=== PATIENT | male | born 2000 | race Caucasian/White ===

== ENCOUNTER 2018-04-19 10:30 | Emergency (ER) | payer BC, OTHER ==
[2018-04-19 11:18] LABS: Urine Bacteria <20 /HPF (NONE SEEN); Urine Culture Reflex Order NOT NEEDED; Urine RBC <5 /HPF (NONE SEEN)
--- NOTE | 2018-04-19 11:29 | RAD REPORT ---
EXAM DESCRIPTION: US - Scrotum Testicles - 04/19/2018 11:09 am CLINICAL HISTORY: PAIN COMPARISON: None FINDINGS: The right testicle 3.9 x 2.3 x 2.1 cm. No intratesticular masses or evidence of testicular torsion. The left testicle 3.7 x 2.5 x 1.7 cm. No intratesticular masses or evidence of testicular torsion. Both epididymides are normal in size and appearance. No pathologic fluid collections. IMPRESSION: Unremarkable study.
--- NOTE | 2018-04-19 12:09 | RAD REPORT ---
EXAM DESCRIPTION: CT - Stone Protocol - 04/19/2018 11:55 am CLINICAL HISTORY: Flank pain. FLANK PAIN COMPARISON: No comparisons TECHNIQUE: Axial images were obtained without oral or IV contrast. Lack of contrast limits solid org an and vascular assessment. The [id number] spans the entirety of the system partially obscuring uppermost abdomen and lung bases. Coronal reformatted images were obtained and reviewed. All CT scans are performed using dose optimization technique as appropriate and may include automated exposure control or mA/KV adjustment according to patient size. FINDINGS: The lower lung crain are clear. Imaged portions of the liver and spleen show no suspicious findings on non-contrast imaging. The panc reas and adrenal glands are normal. No pathologic lymphadenopathy in the abdomen or pelvis. No urinary tract stones or obstructive uropathy. No bowel obstruction, free air, free fluid or abscess. Normal appendix noted.Moderate fecal retention in the colon. No significant bony abnormality. IMPRESSION: No urinary tract stones or obstructive uropathy.
--- NOTE | 2018-04-19 12:17 | ER ---
Nurse's Notes [facility] Name: Marty Madden Age: 17 yrs Sex: Male : 2000 Arrival Date: 04/19/2018 Time: 10:33 Bed 14 Private MD: Kwasi Martinez Diagnosis: acute scrotal pain Presentation: 04/19 10:36 Presenting complaint: Patient states: right testicular pain x [address] tripp Scott's office because they do not take his insurance. Transition of care: patient was not received from another setting of care. Onset of symptoms was March 2018. Care prior to arrival: None. 10:36 Method Of Arrival: Ambulatory sv 10:36 Acuity: ERICA 4 sv 10:41 Risk Assessment: Do you want to hurt yourself or someone else? Patient reports no tw2 desire to harm self or others. Initial Sepsis Screen: Does the patient meet any 2 criteria? No. Patient's initial sepsis screen is negative. Does the patient have a suspected source of infection? No. Patient's initial sepsis screen is negative. Historical: - Allergies: 10:37 No Known Allergies; sv - Home Meds: 10:37 vivanz [Active]; sv - PMHx: 10:37 ADD/ADHD; sv - PSHx: 10:37 None; sv - Immunization history:: Adult Immunizations up to date. - Social history:: Smoking status: Patient/guardian denies using tobacco. - Ebola Screening: : No symptoms or risks identified at this time. Screenin:40 Abuse screen: Denies threats or abuse. Nutritional screening: No deficits noted. tw2 Tuberculosis screening: No symptoms or risk factors identified. Fall Risk None identified. Assessment: 10:41 General: Appears in no apparent distress. Behavior is calm, cooperative, appropriate tw2 for age. Pain: Complains of pain in "testicle". Neuro: Level of Consciousness is awake, alert, obeys commands, Oriented to person, place, time, situation. Cardiovascular: Denies chest pain, shortness of breath, Capillary refill < 3 seconds Patient's skin is warm and dry. Respiratory: Airway is patent Respiratory effort is even, unlabored, Respiratory pattern is regular, symmetrical. GI: No signs and/or symptoms were reported involving the gastrointestinal system. : No signs and/or symptoms were reported regarding the genitourinary system. EENT: No signs and/or symptoms were reported regarding the EENT system. Derm: No signs and/or symptoms reported regarding the dermatologic system. Musculoskeletal: Range of motion: intact in all extremities. 10:42 Reassessment: Dr. Miller at bedside at this time. tw2 11:34 Reassessment: Patient appears in no apparent distress at this time. No changes from tw2 previously documented assessment. Patient and/or family updated on plan of care and expected duration. Pain level reassessed. Patient is alert, oriented x 3, equal unlabored respirations, skin warm/dry/pink. 12:36 Reassessment: Patient appears in no apparent distress at this time. No changes from tw2 previously documented assessment. Patient and/or family updated on plan of care and expected duration. Pain level reassessed. Patient is alert, oriented x 3, equal unlabored respirations, skin warm/dry/pink. Vital Signs: 10:38 BP 137 / 81; Pulse 96; Resp 18; Temp 98.7(TE); Pulse Ox 99% ; Weight 6.8 kg; Height 5 sv ft. 8 in. (172.72 cm); 11:34 BP 140 / 87; Pulse 84; Resp 17; Pulse Ox 100% on R/A; tw2 12:36 BP 133 / 82; Pulse 67; Resp 17; Pulse Ox 99% on R/A; tw2 10:38 Body Mass Index 2.28 (6.80 kg, 172.72 cm) sv ED Course: 10:33 Patient arrived in ED. mr 10:34 Kwasi Martinez MD is Private Physician. mr 10:37 Triage completed. sv 10:39 Arm band placed on right wrist. sv 10:40 Paulette Pardo, POLI is Primary Nurse. tw2 10:41 Allen Miller MD is Attending Physician. gs 10:41 Bed in low position. Adult w/ patient. Pulse ox on. NIBP on. tw2 10:58 Urine Microscopic Only Sent. tw2 11:09 US Scrotum Testicles In Process Unspecified. EDMS 11:26 Urine Dipstick--Ancillary (enter results) Sent. mh5 11:26 Urine collected: clean catch specimen, clear. mh5 11:[address] jj2 11:53 CT completed. Patient tolerated procedure well. Patient moved back from CT. vm2 11:55 CT Stone Protocol In Process Unspecified. EDMS 12:15 Renan Scott MD is Referral Physician. gs 12:36 No provider procedures requiring assistance completed. Patient did not have IV access tw2 during this emergency room visit. Administered Medications: No medications were administered Outcome: 12:16 Discharge ordered by MD. gs 12:36 Discharged to home ambulatory, with family. tw2 12:36 Condition: stable 12:36 Discharge instructions given to patient, family, Instructed on discharge instructions, follow up and referral plans. Demonstrated understanding of instructions, follow-up care. 12:37 Patient left the ED. tw2 Signatures: Dispatcher [employer] EDPoly Mcneal RN RN sv Rivera, Maria Duran, Subhash jPaulette Barfield RN RN [facility] Susanne Bateman [facility] Jossy Yepez 2 Allen Miller MD MD Corrections: (The following items were deleted from the chart) 10:39 10:36 Presenting complaint: Patient states: right testicular pain x 1 month. sv sv 10:39 10:38 Pulse 96bpm; Resp 18bpm; Pulse Ox 99%; Temp 98.7F Temporal; 6.8 kg; Height 5 ft. sv 8 in.; BMI: 2.28; sv
--- NOTE | 2018-04-19 12:17 | EDPHYS ---
Physician Documentation [facility] Name: Marty Madden Age: 17 yrs Sex: Male : 2000 Arrival Date: 04/19/2018 Time: 10:33 Bed 14 Private MD: Kwasi Martinez ED Physician Angela Allen HPI: 04/19 11:39 This 17 yrs old Male presents to ER via Ambulatory with complaints of gs Testicular Pain. 11:39 The patient presents with scrotal pain, of the right side, without swelling, without gs erythema. Onset: The symptoms/episode began/occurred 3 day(s) ago. Modifying factors: The symptoms are alleviated by nothing, the symptoms are aggravated by nothing. Associated signs and symptoms: Pertinent negatives: abdominal pain. Severity of symptoms: At their worst the symptoms were moderate, in the emergency department the symptoms have improved, markedly. 12:11 The patient has experienced similar episodes in the past, a few times. gs Historical: - Allergies: 10:37 No Known Allergies; sv - Home Meds: 10:37 vivanz [Active]; sv - PMHx: 10:37 ADD/ADHD; sv - PSHx: 10:37 None; sv - Immunization history:: Adult Immunizations up to date. - Social history:: Smoking status: Patient/guardian denies using tobacco. - Ebola Screening: : No symptoms or risks identified at this time. ROS: 12:11 Back: Positive for pain at rest, of the lumbar area. gs 12:11 All other systems are negative. Exam: 12:11 Head/Face: Normocephalic, atraumatic. Eyes: Pupils equal round and reactive to light, gs extra-ocular motions intact. Lids and lashes normal. Conjunctiva and sclera are non-icteric and not injected. Cornea within normal limits. Periorbital areas with no swelling, redness, or edema. ENT: Nares patent. No nasal discharge, no septal abnormalities noted. Tympanic membranes are normal and external auditory canals are clear. Oropharynx with no redness, swelling, or masses, exudates, or evidence of obstruction, uvula midline. Mucous membranes moist. Neck: Trachea midline, no thyromegaly or masses palpated, and no cervical lymphadenopathy. Supple, full range of motion without nuchal rigidity, or vertebral point tenderness. No Meningismus. Chest/axilla: Normal chest wall appearance and motion. Nontender with no deformity. No lesions are appreciated. Cardiovascular: Regular rate and rhythm with a normal S1 and S2. No gallops, murmurs, or rubs. Normal PMI, no JVD. No pulse deficits. Respiratory: Lungs have equal breath sounds bilaterally, clear to auscultation and percussion. No rales, rhonchi or wheezes noted. No increased work of breathing, no retractions or nasal flaring. Abdomen/GI: Soft, non-tender, with normal bowel sounds. No distension or tympany. No guarding or rebound. No evidence of tenderness throughout. Back: No spinal tenderness. No costovertebral tenderness. Full range of motion. Skin: Warm, dry with normal turgor. Normal color with no rashes, no lesions, and no evidence of cellulitis. MS/ Extremity: Pulses equal, no cyanosis. Neurovascular intact. Full, normal range of motion. Neuro: Awake and alert, GCS 15, oriented to person, place, time, and situation. Cranial nerves II-XII grossly intact. Motor strength 5/5 in all extremities. Sensory grossly intact. Cerebellar exam normal. Normal gait. 12:11 Constitutional: The patient appears alert, awake. 12:11 : Male external genitalia: tenderness, that is mild, r testicle. Vital Signs: 10:38 BP 137 / 81; Pulse 96; Resp 18; Temp 98.7(TE); Pulse Ox 99% ; Weight 6.8 kg; Height 5 sv ft. 8 in. (172.72 cm); 11:34 BP 140 / 87; Pulse 84; Resp 17; Pulse Ox 100% on R/A; tw2 12:36 BP 133 / 82; Pulse 67; Resp 17; Pulse Ox 99% on R/A; tw2 10:38 Body Mass Index 2.28 (6.80 kg, 172.72 cm) sv MDM: 10:48 Patient medically screened. 12:11 Differential diagnosis: nonspecific abdominal pain, epididymitis, torsion of testicle. Data reviewed: vital signs, nurses notes. 04/19 10:49 Order name: Urine Microscopic Only; Complete Time: 11:33 04/19 11:00 Order name: Urine Dipstick--Ancillary (enter results) eb 04/19 10:49 Order name: Urine Dipstick-Ancillary (obtain specimen); Complete Time: 10:58 04/19 10:49 Order name: US Scrotum Testicles; Complete Time: 11:33 04/19 11:40 Order name: CT Stone Protocol; Complete Time: 12:11 Administered Medications: No medications were administered Disposition: 04/19/18 12:16 Discharged to Home. Impression: acute scrotal pain. - Condition is Stable. - Discharge Instructions: Testicular Self-Exam, [id number]. - Work release form, Medication Reconciliation Form, Thank You Letter, Antibiotic Education, Prescription Opioid Use form. - Follow up: Renan Scott MD; When: 2 - 3 days; Reason: Re-evaluation by your physician. Signatures: Dispatcher [employer] Poly Danielle, POLI RN Paulette Pardo RN RN tw2 Allen Miller MD MD Corrections: (The following items were deleted from the chart) 12:37 12:16 04/19/2018 12:16 Discharged to Home. Impression: acute scrotal pain. Condition is tw2 Stable. Forms are Medication Reconciliation Form, Thank You Letter, Antibiotic Education, Prescription Opioid Use. Follow up: Renan Scott; When: 2 - 3 days; Reason: Re-evaluation by your physician.
[2018-04-19 14:59] LABS: Urine Blood NEGATIVE (NEG); Urine Glucose NEGATIVE (NEG); Urine Protein NEGATIVE (NEG); Urine pH 6.5 (5.0-7.0)
== END 2018-04-19 12:37 | disposition home or self-care (01) ==
LOC: ER 10:30
DX: N50.82 Scrotal pain (principal)
CPT/HCPCS: 74176; 76377; 76870; 81003; 81015; 99284

== ENCOUNTER 2021-01-13 15:34 | Emergency (ER) | payer OTHER, SELFPAY ==
--- NOTE | 2021-01-13 16:37 | ER ---
Nurse's Notes [facility] Name: Marty Madden Age: 20 yrs Sex: Male : 2000 Arrival Date: 01/13/2021 Time: 15:35 Bed Waiting Private MD: Diagnosis: ED Course: 01/13 15:35 Patient arrived in ED. as 16:36 Patient's name was called from ER lobby. No response. Unable to locate patient. Will ca1 disposition as left without being seen by a provider. Administered Medications: No medications were administered Outcome: 16:36 Patient left the ED. ca1 Signatures: Winter Bateman Cheryl RN RN ca1
== END 2021-01-13 16:36 | disposition left against medical advice (07) ==
LOC: ER 15:34
DX: R69 Illness, unspecified (principal); Z53.21 Procedure and treatment not carried out due to patient leaving prior to being seen by health care provider

== ENCOUNTER 2021-01-14 11:23 | Emergency (ER) | payer SELFPAY ==
--- NOTE | 2021-01-14 13:17 | ER ---
Nurse's Notes [facility] Name: Marty Madden Age: 20 yrs Sex: Male : 2000 Arrival Date: 01/14/2021 Time: 11:23 Bed 23 Private MD: Diagnosis: Pain in right hand Presentation: 01/14 11:57 Chief complaint: Patient states: slipped while walking upstairs, right hand punched em concrete step, right hand swelling noted. Coronavirus screen: Client denies travel out of the [place] in the last 14 days. Ebola Screen: Patient negative for fever greater than or equal to 101.5 degrees Fahrenheit, and additional compatible Ebola Virus Disease symptoms Patient denies exposure to infectious person. Patient denies travel to an Ebola-affected area in the 21 days before illness onset. No symptoms or risks identified at this time. Initial Sepsis Screen: Does the patient meet any 2 criteria? No. Patient's initial sepsis screen is negative. Does the patient have a suspected source of infection? No. Patient's initial sepsis screen is negative. Risk Assessment: Do you want to hurt yourself or someone else? Patient reports no desire to harm self or others. Onset of symptoms was January 14, 2021. 11:57 Method Of Arrival: Ambulatory em 11:57 Acuity: ERICA 4 em Historical: - Allergies: 11:59 No Known Allergies; em - PMHx: 11:59 ADD/ADHD; em - PSHx: 11:59 None; em - Immunization history:: Last tetanus immunization: up to date. - Social history:: Smoking status: Patient denies any tobacco usage or history of. Screenin:09 Abuse screen: Denies threats or abuse. Denies injuries from another. Nutritional zb screening: No deficits noted. Tuberculosis screening: No symptoms or risk factors identified. Fall Risk None identified. Assessment: 12:07 General: Appears in no apparent distress. uncomfortable, Behavior is calm, cooperative, zb appropriate for age. Pain: Complains of pain in right hand Pain radiates to right arm Pain currently is 1 out of 10 on a pain scale. at worst was 10 out of 10 on a pain scale. Quality of pain is described as aching, sharp, throbbing. Neuro: Level of Consciousness is awake, alert, obeys commands, Oriented to person, place, time, situation. Cardiovascular: Patient's skin is warm and dry. Respiratory: Airway is patent Respiratory effort is even, unlabored, Respiratory pattern is regular, symmetrical. Derm: Skin is intact, is healthy with good turgor, Skin is normal, Skin temperature is warm Bruising that is on right hand light green. Musculoskeletal: Swelling present in dorsum of right hand. 12:09 Reassessment: ECP at bedside. zb 12:15 Reassessment: xray at bedside. zb 13:30 Reassessment: Patient appears in no apparent distress at this time. Patient and/or zb family updated on plan of care and expected duration. Pain level reassessed. Patient is alert/active/playful, equal unlabored respirations, skin warm/dry/pink. patient ambulated out with family. Vital Signs: 11:57 BP 136 / 84; Pulse 63; Resp 18; Temp 97.8; Pulse Ox 100% on R/A; Weight 70.31 kg; em Height 5 ft. 7 in. (170.18 cm); Pain 1/10; 11:57 Body Mass Index 24.28 (70.31 kg, 170.18 cm) em ED Course: 11:23 Patient arrived in ED. ds1 11:58 Triage completed. em 11:59 Arm band placed on. em 12:02 Yanira Torre, POLI is Primary Nurse. zb 12:07 Naya Rodrigues FNP-C is PHCP. kb 12:07 Jun Richardson MD is Attending Physician. kb 12:09 Patient has correct armband on for positive identification. Bed in low position. Call zb light in reach. Side rails up X 1. Adult w/ patient. Door closed. Noise minimized. 12:42 Hand Right 3 View XRAY In Process Unspecified. EDMS 13:30 Patient did not have IV access during this emergency room visit. zb 13:33 No provider procedures requiring assistance completed. zb Administered Medications: No medications were administered Outcome: 13:16 Discharge ordered by . kb 13:30 Patient left the ED. kb 13:30 Discharged to home ambulatory. zb 13:30 Condition: stable 13:30 Discharge instructions given to patient, family, Instructed on discharge instructions, follow up and referral plans. Demonstrated understanding of instructions, follow-up care. Signatures: Dispatcher [employer] Naya Mata, STOREROOM CLERK-C STOREROOM CLERK-Milind Vinson RN Nori Garcia ds1 Yanira Torre RN RN zb Corrections: (The following items were deleted from the chart) 20:07 13:00 Reassessment: Patient appears in no apparent distress at this time. Patient zb and/or family updated on plan of care and expected duration. Pain level reassessed. Patient is alert/active/playful, equal unlabored respirations, skin warm/dry/pink. patient ambulated out with family zb
--- NOTE | 2021-01-14 13:17 | EDPHYS ---
Physician Documentation [facility] Name: Marty Madden Age: 20 yrs Sex: Male : 2000 Arrival Date: 01/14/2021 Time: 11:23 Bed 23 Private MD: ED Physician Jun Richardson HPI: 01/14 13:22 This 20 yrs old Male presents to ER via Ambulatory with complaints of Fall kb Injury, Hand Injury. 13:22 The patient or guardian reports an abrasion, injury, pain, swelling, tenderness. The kb complaints affect the dorsum of right hand. Context: The problem was sustained at home, resulted from a fall, going up stairs. Onset: The symptoms/episode began/occurred 4 day(s) ago. Modifying factors: The symptoms are alleviated by nothing, the symptoms are aggravated by nothing. Associated signs and symptoms: The patient has no apparent associated signs or symptoms. Severity of symptoms: At their worst the symptoms were moderate, in the emergency department the symptoms have improved. The patient has not experienced similar symptoms in the past. The patient has not recently seen a physician. Pt reports he fell onto right hand on Thursday. States it was very swollen over the weekend, but it is looking better now. Came today because he went to work and they told him he needed to get it checked out before he could come in. Historical: - Allergies: 11:59 No Known Allergies; em - PMHx: 11:59 ADD/ADHD; em - PSHx: 11:59 None; em - Immunization history:: Last tetanus immunization: up to date. - Social history:: Smoking status: Patient denies any tobacco usage or history of. ROS: 13:19 Constitutional: Negative for fever, chills, and weight loss, Neuro: Negative for kb headache, weakness, numbness, tingling, and seizure. 13:19 MS/extremity: Positive for injury or acute deformity, abrasion, pain, swelling, tenderness, of the dorsum of right hand. Exam: 13:21 Constitutional: This is a well developed, well nourished patient who is awake, alert, kb and in no acute distress. Head/Face: Normocephalic, atraumatic. Respiratory: Respirations even and unlabored. No increased work of breathing, no retractions or nasal flaring. Neuro: Awake and alert, GCS 15, oriented to person, place, time, and situation. Moves all extremities. Normal gait. 13:21 Musculoskeletal/extremity: Extremities: grossly normal except: noted in the dorsum of right hand: pain, swelling, tenderness, ROM: intact in all extremities, Circulation is intact in all extremities. Sensation intact. 13:21 Skin: injury, abrasion(s), very small abrasion noted, of the dorsum of right hand. Vital Signs: 11:57 BP 136 / 84; Pulse 63; Resp 18; Temp 97.8; Pulse Ox 100% on R/A; Weight 70.31 kg; em Height 5 ft. 7 in. (170.18 cm); Pain 1/10; 11:57 Body Mass Index 24.28 (70.31 kg, 170.18 cm) em MDM: 12:07 Patient medically screened. kb 13:21 Data reviewed: vital signs, nurses notes. Data interpreted: Pulse oximetry: on room air kb is 100 %. Interpretation: normal. Counseling: I had a detailed discussion with the patient and/or guardian regarding: the historical points, exam findings, and any diagnostic results supporting the discharge/admit diagnosis, radiology results, the need for outpatient follow up, a family practitioner, to return to the emergency department if symptoms worsen or persist or if there are any questions or concerns that arise at home. 01/14 12:03 Order name: Hand Right 3 View XRAY; Complete Time: 13:18 em Administered Medications: No medications were administered Disposition: 01/14/21 13:16 Discharged to Home. Impression: Pain in right hand. - Condition is Stable. - Discharge Instructions: Musculoskeletal Pain, Hand Contusion, [id number]. - Work release form, Medication Reconciliation Form, Thank You Letter, Antibiotic Education, Prescription Opioid Use form. - Follow up: Emergency Department; When: As needed; Reason: Worsening of condition. Follow up: Private Physician; When: 2 - 3 days; Reason: Recheck today's complaints, Continuance of care, Re-evaluation by your physician. Addendum: 01/17/2021 06:14 Co-signature as Attending Physician, Jun veliz a2 Signatures: Dispatcher [employer] Naya Mata, TAMMY-C TAMMY-Milind Vinson RN Jun Bennett MD MD ma2 Corrections: (The following items were deleted from the chart) 01/14 13:22 13:21 Constitutional: This is a well developed, well nourished patient who is awake, kb alert, and in no acute distress. Head/Face: Normocephalic, atraumatic. Neuro: Awake and alert, GCS 15, oriented to person, place, time, and situation. Moves all extremities. Normal gait. kb 13:30 13:16 01/14/2021 13:16 Discharged to Home. Impression: Pain in right hand. Condition is kb Stable. Forms are Medication Reconciliation Form, Thank You Letter, Antibiotic Education, Prescription Opioid Use. Follow up: Emergency Department; When: As needed; Reason: Worsening of condition. Follow up: Private Physician; When: 2 - 3 days; Reason: Recheck today's complaints, Continuance of care, Re-evaluation by your physician. kb
--- NOTE | 2021-01-14 13:17 | RAD REPORT ---
EXAM DESCRIPTION: RAD - Hand Right 3 View - 01/14/2021 12:42 pm CLINICAL HISTORY: PAIN, fall, pain primarily fourth and fifth metacarpal region COMPARISON: No comparisons FINDINGS: No fracture is identified. There is no dislocation or periosteal reaction noted. No forei gn body or significant soft tissue abnormality. IMPRESSION: Negative right hand examination.
[2021-01-14 13:38] VITALS: BP 136/84; TEMP 97.8; O2SAT 100
== END 2021-01-14 13:30 | disposition home or self-care (01) ==
LOC: ER 11:23
DX: S60.511A Abrasion of right hand, initial encounter (principal); W19.XXXA Unspecified fall, initial encounter; Y93.01 Activity, walking, marching and hiking; Y92.009 Unspecified place in unspecified non-institutional (private) residence as the place of occurrence of the external cause
CPT/HCPCS: 99283

== ENCOUNTER 2022-07-09 21:20 | Emergency (ER) | payer SELFPAY ==
--- OUTSIDE RECORDS SUMMARY | 2022-07-09 21:24 | XMS REPORT | Continuity of Care Document ---
:2000 Author Organization [facility] t Address [address] [place] [address] Care Team Providers Name Role Phone Lab, Adc Fam Pob I Attending Clinician Unavailable Tresa Padilla Attending Clinician TRESA MASSEY Attending Clinician Unavailable Doctor Unassigned, [place] Attending Clinician Unavailable Maggie Perez Attending Clinician MAGGIE HENDERSON Attending Clinician Unavailable Andreina Martinez MD Attending Clinician ANDREINA MARTINEZ Attending Clinician Unavailable Payers Payer Name Policy Type Policy Number Effective Date Expiration Date [facility] [id number] 2017 PPO 00:00:00 Problems Condition Condition Condition Status Onset Resolution Last Treating Co mments Source Name Details Category Date Date Treatment Clinician Date Attention Attention Disease Active 2015-09 Uni vers deficit deficit 2-23 ity of disorder disorder 00:00: [address] Allergies, Adverse Reactions, Alerts Allergy Allergy Status Severity Reaction(s) Onset Inactive Treating Comm ents Source Name Type Date Date Clinician NO KNOWN Drug Active Univers ALLERGIE Class ity of S [facility] Social History Social Habit Start Date Stop Date Quantity Comments Source History of Snuff User University of tobacco use [facility] Exposure to Not sure University of SARS-CoV-2 [facility] (event) Branch Tobacco use and 2018-04-22 2018-04-22 Former user Universi ty of exposure 00:00:00 00:00:00 [facility] Alcohol intake 2018-04-22 2018-04-22 Current University of 00:00:00 00:00:00 non-drinker of [facility] alcohol Branch (finding) Sex Assigned At [birth year] Universit y of 00:00:00 00:00:00 [facility] Smoking Status Start Date Stop Date Source Never smoker [facility] Branch Medications Ordered Filled Start Stop Current Ordering Indication Dosage Frequency Signature Comments Components Source Medication Medication Date Date Medication? Clinician (SIG) Name Name shirley 2019-09 2020- No [id number] 1000mg Take 2 Univers n 500 mg 2-11 12-12 tablets by ity of tablet 00:[place] 05[place]59 [place] 1 Medical dose. Branch shirley 2019-09 2020- No [id number] 1000mg Take 2 Univers n 500 mg 2-11 12-12 tablets by ity of tablet 00:00[place] 05[place] now for 1 Medical dose. Branch shirley 2019-09- No [id number] 1000mg Take 2 Univers n 500 mg 2-11 12-12 tablets by ity of tablet 00:00[place] 05:59 [place] now for 1 Medical dose. Branch lisdexamfet 2018- Yes [id number] 50mg Take 1 Univers amine 5-14 capsule by ity of (VYVANSE) 00:00: mouth [place] 50 mg 00 daily. Medical capsule Branch lisdexamfet 2018- Yes [id number] 50mg Take 1 Univers amine 5-14 capsule by ity of (VYVANSE) 00:00: mouth [place] 50 mg 00 daily. Medical capsule Branch lisdexamfet 2018- Yes [id number] 50mg Take 1 Univers amine 5-14 capsule by ity of (VYVANSE) 00:00: mouth [place] 50 mg 00 daily. Medical capsule Branch lisdexamfet 2018-0 Yes [id number] 50mg Take 1 Univers amine 5-14 capsule by ity of (VYVANSE) 00:00: mouth [place] 50 mg 00 daily. Medical capsule Branch lisdexamfet 2018-0 Yes [id number] 50mg Take 1 Univers amine 5-14 capsule by ity of (VYVANSE) 00:00: mouth [place] 50 mg 00 daily. Medical capsule Branch lisdexamfet 2018- Yes [id number] 50mg Take 1 Univers amine 5-14 capsule by ity of (VYVANSE) 00:00: mouth [place] 50 mg 00 daily. Medical capsule Branch lisdexamfet 2018-0 Yes [id number] 50mg Take 1 Univers amine 5-14 capsule by ity of (VYVANSE) 00:00: mouth [place] 50 mg 00 daily. Medical capsule Branch lisdexamfet Yes [id number] 50mg Take 1 Univers amine 5-14 capsule by ity of (VYVANSE) 00:00: mouth [place] 50 mg 00 daily. Medical capsule Branch lisdexamfet Yes [id number] 50mg Take 1 Univers amine 5-14 capsule by ity of (VYVANSE) 00:00: mouth [place] 50 mg 00 daily. Medical capsule Branch busPIRone 5 Yes [id number] 5mg Take 1 Univers mg tablet 4-09 tablet by ity o f 00:00: mouth (two) Medical times Branch daily. busPIRone 5 Yes [id number] 5mg Take 1 Univers mg tablet 4-09 tablet by ity o f 00:00: mouth (two) Medical times Branch daily. busPIRone 5 Yes [id number] 5mg Take 1 Univers mg tablet 4-09 tablet by ity o f 00:00: mouth (two) Medical times Branch daily. busPIRone 5 Yes [id number] 5mg Take 1 Univers mg tablet 4-09 tablet by ity o f 00:00: mouth (two) Medical times Branch daily. busPIRone 5 Yes [id number] 5mg Take 1 Univers mg tablet 4-09 tablet by ity o f 00:00: mouth (two) Medical times Branch daily. busPIRone 5 Yes [id number] 5mg Take 1 Univers mg tablet 4-09 tablet by ity o f 00:00: mouth (two) Medical times Branch daily. busPIRone 5 Yes [id number] 5mg Take 1 Univers mg tablet 4-09 tablet by ity o f 00:00: mouth (two) Medical times Branch daily. busPIRone 5 Yes [id number] 5mg Take 1 Univers mg tablet 4-09 tablet by ity o f 00:00: mouth (two) Medical times Branch daily. busPIRone 5 Yes [id number] 5mg Take 1 Univers mg tablet 4-09 tablet by ity o f 00:00: mouth 2 [place] (two) Medical times [place] daily. Vital Signs Vital Name Observation Time Observation Value Comments Source Systolic blood 2020-08-24 21:21:00 129 [facility] Diastolic blood 2020-08-24 21:21:00 78 [facility]Hg[facility] 2020-08-24 21:21:00 89 /min [facility] Body temperature 2020-08-24 21:21:00 37.06 [facility] height 2020-08-24 21:21:00 170.2 cm [facility] Body weight 2020-08-24 21:21:00 72.122 kg [facility] BMI 2020-08-24 21:21:00 24.90 kg/m2 [facility] Procedures Procedure Date / Time Performed Performing Clinician Sourc e EXTERNAL PROVIDER 2021-01-29 05:01:00 Doctor Unassigned, No [facility] RECORDS Name [facility] POCT URINALYSIS 2020-08-24 00:00:00 Andreina Martinez [facility] Encounters Start End Encounter Admission Attending Care Care Encounter Source Date/Time Date/Time Type Type Clinicians Facility Department ID 2021-03-05 2021-03-05 Laboratory Lab, Adc Fam Pob I [facility] [id number]. [id number] Univers 10:04:05 10:24:05 Only Tresa Massey [facility] [id number] [facility] [id number] Blu as Professio [phone] Mn dical [facility] [address] 2021-03-05 2021-03-05 Outpatient R [facility] [id number] Univers 09:30:00 09:30:00 [facility] 2021-03-05 2021-03-05 Outpatient R BRYSON [facility] [id number] Univers 09:20:00 09:20:00 TRESA [facility] 2021-01-29 2021-01-29 Orders Doctor REED [id number] Univers 00:00:00 00:00:00 Only Unassigned, FRANCES [id number] ity of [place] [id number] Blu as [id number] [address] 2020-11-17 2020-11-17 [facility] [id number] Univers 00:00:00 00:00:00 Maggie [facility] [id number] i ty of [place] [id number] Blu as Professio [phone] [facility] [address] [facility] 2020-11-15 2020-11-15 Telephone [facility] [id number] Univers 00:00:00 00:00:00 Maggie [facility] [id number] i ty of Surgical [id number] Blu [phone] [facility] [address] [facility] 2020-11-14 2020-11-14 Laboratory Lab, Adc Fam Pob I [facility] 1.2. [id number] Univers 13:33:06 13:53:06 Only Wanda Hendersontequila [facility] [id number] ity of [place] [id number] Blu as Professio [phone] [address] 2020-11-14 2020-11-14 [facility] [id number] Univers 13:40:00 13:40:00 MAGGIE ity of [facility] 2020-11-14 2020-11-14 Letter Doctor BRIANNA [id number] Univers 00:00:00 00:00:00 (Out) Unassigned, FRANCES [id number] ity of [place] [facility] [id number] Blu as [phone] [address] 2020-08-24 2020-08-24 Office [facility] [id number] Univers 15:06:54 15:31:17 Visit [facility] [id number] it y of Xiang Fuller [id number] Blu as Jamari [phone] [place] d[place] [address] [address] 2020-08-24 2020-08-24 Outpatient R YINA [facility] [id number] Univers 15:15:00 15:15:00 [facility] 2020-08-24 2020-08-24 Outpatient R YINA [facility] [id number] [facility] 15:15:00 15:15:00 [facility] Results Test Description Test Time Test Comments Results Result Comments Source POCT URINALYSIS W SPECIFIC GRAVITY 2020-08-24 21:25:00 Test Item Value Reference Range Interpretation Comme nts POCT U SP GRAV (test code = 3255) 1.010 mg/dl 1.005-1.025 POCT PH U (test code = 3254) 7 mg/dl 5-8 POCT U LEUK EST (test code = 3263) + Negative - Negative POCT U NIT (test code = 3262) neg Negative - Negative POCT U PROT (test code = 3259) trace Negative - Negative POCT U GLU (test code = 3256) normal Negative - Negative POCT U KETONE (test code = 3258) neg Negative - Negative POCT U UROBILI (test code = 3260) normal 0.2-1 POCT U BILI (test code = 3261) neg Negative - Negative POCT U BLD (test code = 3257) neg Negative - Negative POCT U COLOR (test code = 3266) pale POCT U APPEAR (test code = 3267) cloudy [facility] [id number] 21:25:00 Test Item Value Reference Range Interpretation Comments POCT U SP GRAV (test code = 1.010 mg/dl 1.005-1.025 3255) POCT PH U (test code = 3254) 7 mg/dl 5-8 POCT U LEUK EST (test code = + Negative - Negative 3263) POCT U NIT (test code = 3262) neg Negative - Negative POCT U PROT (test code = trace Negative - Negative 3259) POCT U GLU (test code = 3256) normal Negative - Negative POCT U KETONE (test code = neg Negative - Negative 3258) POCT U UROBILI (test code = normal 0.2-1 3260) POCT U BILI (test code = neg Negative - Negative 3261) POCT U BLD (test code = 3257) neg Negative - Negative POCT U COLOR (test code = pale 3266) POCT U APPEAR (test code = cloudy 3267) [facility] SPECIFIC [id number] 21:25:00 Test Item Value Reference Range Interpretation Comments POCT U SP GRAV (test code = 1.010 mg/dl 1.005-1.025 3255) POCT PH U (test code = 3254) 7 mg/dl 5-8 POCT U LEUK EST (test code = + Negative - Negative 3263) POCT U NIT (test code = 3262) neg Negative - Negative POCT U PROT (test code = trace Negative - Negative 3259) POCT U GLU (test code = 3256) normal Negative - Negative POCT U KETONE (test code = neg Negative - Negative 3258) POCT U UROBILI (test code = normal 0.2-1 3260) POCT U BILI (test code = neg Negative - Negative 3261) POCT U BLD (test code = 3257) neg Negative - Negative POCT U COLOR (test code = pale 3266) POCT U APPEAR (test code = cloudy 3267) [facility]
[2022-07-09] MEDS ORDERED: ACETAMINOPHEN 500 MG TAB ONE (21:46)
--- NOTE | 2022-07-09 22:09 | RAD REPORT ---
EXAM DESCRIPTION: RAD - Chest Single View - 07/09/2022 10:01 pm CLINICAL HISTORY: FEVER COMPARISON: None TECHNIQUE: AP portable chest image was obtained 07/09/2022 10:01 pm . FINDINGS: Lungs are clear. Heart and vasculature are normal. No measurable pleural effusion and no p neumothorax. No acute bony abnormality seen. No acute aortic findings suspected. IMPRESSION: No acute cardiopulmonary process.
--- NOTE | 2022-07-09 23:19 | ER ---
Nurse's Notes [facility] Name: Marty Madden Age: 22 yrs Sex: Male : 2000 Arrival Date: 07/09/2022 Time: 21:22 Bed 2 Private MD: Diagnosis: Fever, unspecified;Myalgia Presentation: 07/09 21:25 Chief complaint: Patient states: Woke up with body aches. Developed fever - CP \\T\\ ld1 numbness of left side of face and left arm began to feel numb. Coronavirus screen: At this time, the client does not indicate any symptoms associated with coronavirus-19. Ebola Screen: No symptoms or risks identified at this time. Initial Sepsis Screen: Does the patient meet any 2 criteria? No. Patient's initial sepsis screen is negative. Does the patient have a suspected source of infection? No. Patient's initial sepsis screen is negative. Risk Assessment: Do you want to hurt yourself or someone else? Patient reports no desire to harm self or others. Onset of symptoms was July 09, 2022. 21:25 Method Of Arrival: Ambulatory ld1 21:25 Acuity: ERICA 3 ld1 Historical: - Allergies: 21:27 No Known Allergies; ld1 - PMHx: 21:27 ADD/ADHD; ld1 - PSHx: 21:27 None; ld1 - Immunization history:: Adult Immunizations up to date, Client reports receiving the 2nd dose of the Covid vaccine. - Social history:: Smoking status: Patient denies any tobacco usage or history of. Patient/guardian denies using alcohol, street drugs. - Family history:: not pertinent. - Hospitalizations: : No recent hospitalization is reported. Screenin:55 Abuse screen: Denies threats or abuse. Nutritional screening: No deficits noted. kl Tuberculosis screening: No symptoms or risk factors identified. Fall Risk None identified. Assessment: 21:52 General: Appears uncomfortable, Behavior is calm, cooperative. Pain: Complains of pain kl in generalized body aches Pain began 1 day ago. Neuro: No deficits noted. Cardiovascular: Capillary refill < 3 seconds Rhythm is sinus tachycardia. Respiratory: No deficits noted. Airway is patent Trachea midline Respiratory effort is even, unlabored. GI: No deficits noted. No signs and/or symptoms were reported involving the gastrointestinal system. : No deficits noted. No signs and/or symptoms were reported regarding the genitourinary system. 22:35 Reassessment: Patient and/or family updated on plan of care and expected duration. Pain ll3 level reassessed. Patient is alert, oriented x 3, equal unlabored respirations, skin warm/dry/pink. C/ body aches, ERP notifed. Vital Signs: 21:25 BP 124 / 95; Pulse 131; Resp 22; Temp 101.3(O); Pulse Ox 100% on R/A; Weight 77.11 kg; ld1 Height 5 ft. 7 in. (170.18 cm); Pain 6/10; 21:53 BP 124 / 84; Pulse 113; Resp 16; kl 22:35 BP 115 / 69; Pulse 102; Resp 17; Temp 99.5(O); Pulse Ox 98% on R/A; ll3 22:58 BP 118 / 72; Pulse 96; Resp 17; Pulse Ox 98% ; vc1 21:25 Body Mass Index 26.63 (77.11 kg, 170.18 cm) ld1 ED Course: 21:22 Patient arrived in ED. ja2 21:27 Dayron Corbett MD is Attending Physician. rn 21:27 Triage completed. ld1 21:39 Strep Sent. kl 21:52 SARS-COV-2 RT PCR (Document "Date of Onset" if Symptomatic) Sent. kl 21:52 Flu Sent. kl 21:55 Patient has correct armband on for positive identification. Pulse ox on. NIBP on. kl 22:00 Arm band placed on. vc1 22:03 XRAY Chest (1 view) In Process Unspecified. EDMS 22:58 Zoraida Qiu, POLI is Primary Nurse. vc1 22:59 Patient maintains SpO2 saturation greater than 95% on room air. vc1 23:26 No provider procedures requiring assistance completed. Patient did not have IV access vc1 during this emergency room visit. Administered Medications: 21:52 Drug: Tylenol 1000 mg Route: PO; kl Medication: 22:59 VIS not applicable for this client. vc1 Outcome: 23:18 Discharge ordered by . rn 23:26 Discharged to home ambulatory, with significant other. vc1 23:26 Condition: good 23:26 Discharge instructions given to patient, Instructed on discharge instructions, follow up and referral plans. Demonstrated understanding of instructions, follow-up care. 23:27 Patient left the ED. vc1 Signatures: Dispatcher [employer] Anita Reyes RN Dayron Turner MD MD rn Dibbern, Lauren, RN RN ld1 Dorie Bowen Lynsea, RN RN ll3 Zoraida Qiu RN RN vc1 Corrections: (The following items were deleted from the chart) :27 21:27 PSHx: Unable to Obtain; ld1 ld1
--- NOTE | 2022-07-09 23:20 | EDPHYS ---
Physician Documentation [facility] Name: Marty Madden Age: 22 yrs Sex: Male : 2000 Arrival Date: 07/09/2022 Time: 21:22 Bed 2 Private MD: ED Physician Dayron Corbett HPI: 07/09 22:17 This 22 yrs old Male presents to ER via Ambulatory with complaints of fever, myalgias. rn 22:18 The patient reports fever, not measured (subjective). Onset: The symptoms/episode rn began/occurred today. Modifying factors: there are no obvious modifying factors. Associated signs and symptoms: Pertinent positives: chills, myalgias, nausea, Pertinent negatives: abdominal pain, altered mental status, headache, hemoptysis, skin rash, shortness of breath, swelling, vomiting. Severity of symptoms: At their worst the symptoms were moderate in the emergency department the symptoms are unchanged. The patient has not experienced similar symptoms in the past. The patient has not recently seen a physician. Pt reports fever, myalgias, fatigue, nausea that began earlier today. No known sick contacts. Reports when got here began to feel anxious and hyperventilate, causing numbness of face and extremities. NO neck pain. No sob. No abd pain. . Historical: - Allergies: 21:27 No Known Allergies; ld1 - PMHx: 21:27 ADD/ADHD; ld1 - PSHx: :27 None; ld1 - Immunization history:: Adult Immunizations up to date, Client reports receiving the 2nd dose of the Covid vaccine. - Social history:: Smoking status: Patient denies any tobacco usage or history of. Patient/guardian denies using alcohol, street drugs. - Family history:: not pertinent. - Hospitalizations: : No recent hospitalization is reported. ROS: 22:18 Constitutional: + fever and chills Eyes: Negative for injury, pain, redness, and rn oncology clinical, Neck: Negative for injury, pain, and swelling, Cardiovascular: Negative for chest pain, palpitations, and edema, Respiratory: Negative for shortness of breath, cough, wheezing, and pleuritic chest pain, Abdomen/GI: Negative for abdominal pain, vomiting, diarrhea, and constipation, Back: Negative for injury and pain, MS/Extremity: Negative for injury and deformity, Skin: Negative for injury, rash, and discoloration, Neuro: Negative for headache, and seizure Exam: 22:18 Constitutional: This is a well developed, well nourished patient who is awake, alert, rn anxious and hyperventilating, ambulatory to room without assistance. Head/Face: Normocephalic, atraumatic. Eyes: Periorbital areas with no swelling, redness, or edema. Neck: Trachea midline, no thyromegaly or masses palpated, and no cervical lymphadenopathy. Supple, full range of motion without nuchal rigidity, or vertebral point tenderness. No Meningismus. Cardiovascular: Regular rate and rhythm. No pulse deficits. Respiratory: No increased work of breathing, no retractions or nasal flaring. Abdomen/GI: Soft, non-tender Skin: Warm, dry MS/ Extremity: Pulses equal, no cyanosis. Neuro: Awake and alert, GCS 15, oriented to person, place, time, and situation. Cranial nerves II-XII grossly intact. Motor strength 5/5 in all extremities. Sensory grossly intact. Cerebellar exam normal. Normal gait. Vital Signs: 21:25 BP 124 / 95; Pulse 131; Resp 22; Temp 101.3(O); Pulse Ox 100% on R/A; Weight 77.11 kg; ld1 Height 5 ft. 7 in. (170.18 cm); Pain 6/10; 21:53 BP 124 / 84; Pulse 113; Resp 16; kl 22:35 BP 115 / 69; Pulse 102; Resp 17; Temp 99.5(O); Pulse Ox 98% on R/A; ll3 22:58 BP 118 / 72; Pulse 96; Resp 17; Pulse Ox 98% ; vc1 21:25 Body Mass Index 26.63 (77.11 kg, 170.18 cm) ld1 MDM: 21:27 Patient medically screened. rn 23:15 Differential diagnosis: viral Infection, bacterial infection, URI, pneumonia. Data rn reviewed: vital signs, nurses notes, lab test result(s), radiologic studies, plain films, and as a result, I will discharge patient. Counseling: I had a detailed discussion with the patient and/or guardian regarding: the historical points, exam findings, and any diagnostic results supporting the discharge/admit diagnosis, lab results, radiology results, the need for outpatient follow up, to return to the emergency department if symptoms worsen or persist or if there are any questions or concerns that arise at home. Response to treatment: the patient's symptoms have markedly improved after treatment, and as a result, I will discharge patient. Special discussion: I discussed with the patient/guardian in detail that at this point there is no indication for admission to the hospital. It is understood, however, that if the symptoms persist or worsen the patient needs to return immediately for re-evaluation. ED course: Most likely flu but neg flu here. Offered tamiflu but pt declines. . 23:19 ED course: Return precautions given since fever just started today and still may be rn undifferentiated. . 07/09 21:28 Order name: Flu rn 07/09 21: Order name: SARS-COV-2 RT PCR (Document "Date of Onset" if Symptomatic) rn 07/09 21: Order name: Strep rn 07/09 21: Order name: XRAY Chest (1 view); Complete Time: 22:13 rn 07/09 22:54 Order name: Throat Culture EDMS Administered Medications: 21:52 Drug: Tylenol 1000 mg Route: PO; Disposition Summary: 07/09/22 23:18 Discharge Ordered Location: Home rn Problem: new rn Symptoms: have improved rn Condition: Stable rn Diagnosis - Fever, unspecified rn - Myalgia rn Followup: rn - With: Private Physician - When: As needed - Reason: Recheck today's complaints, Re-evaluation by your physician Discharge Instructions: - Discharge Summary Sheet rn - Fever, Adult rn Forms: - Medication Reconciliation Form rn - Thank You Letter rn - Antibiotic internal medicine physician - Prescription Opioid Use rn - Work release form vc1 Signatures: Dispatcher [employer] Anita Reyes RN RN kl Nieto, Roman, MD MD rn Dibbern, Lauren, RN RN ld1 Corrections: (The following items were deleted from the chart) 21:27 21:27 PSHx: Unable to Obtain; ld1 ld1
[2022-07-10 00:36] VITALS: TEMP 99.5; O2SAT 98
[2022-07-10 00:38] VITALS: BP 118/72
== END 2022-07-09 23:27 | disposition home or self-care (01) ==
LOC: ER 21:20
DX: R50.9 Fever, unspecified (principal); M79.10 Myalgia, unspecified site; Z20.822 Contact with and (suspected) exposure to COVID-19
CPT/HCPCS: 71045; 87070; 87081; 87804; 99285; U0003